=== PATIENT | male | born 1960 | race Caucasian/White ===

== ENCOUNTER → 2016-10-01 | Outpatient (CLI) | payer OTHER ==
[2016-10-01 07:38] LABS: CH 29.5; CHCM 33.7; HCT 46.1 % (39.0-53.0); HDW 2.57; HGB 15.3 gm/dL (13.0-17.5); MCH 29.2 pg (25.0-35.0); MCHC 33.2 g/dL (31.0-37.0); MCV 87.9 fL (80.0-100.0); Mean Platelet Volume 6.8; RBC 5.24 m/uL (4.30-5.90); RDW 12.5 % (11.5-15.5); WBC 7.1 k/uL (3.8-10.6)
[2016-10-01 10:53] LABS: ALT 39 U/L (21-72); AST 23 U/L (17-59); Alkaline Phosphatase 86 U/L (38-126); Anion Gap 10 mmol/L; Blood Urea Nitrogen 17 mg/dL (9-20); Carbon Dioxide 31 mmol/L (22-30); Chloride 103 mmol/L (98-107); Cholesterol 247 mg/dL (<200); Glucose 113 mg/dL (74-99); HDL Cholesterol 52 mg/dL (40-60); Non-African American GFR(MDRD) >60 (>60 ml/min/1.73 sqM); Potassium 4.5 mmol/L (3.5-5.1); Sodium 144 mmol/L (137-145); Total Bilirubin 0.7 mg/dL (0.2-1.3); Total Protein 7.1 g/dL (6.3-8.2); Triglycerides 165 mg/dL (<150)
[2016-10-01 11:22] LABS: Prostate Specific Antigen 3.71 ng/mL (0.00-4.00)
[2016-10-01 16:26] LABS: Hemoglobin A1C 5.4 % (4.2-6.1)
== END ==
LOC: LABWHC1 07:13
PROVIDERS: ATTEND Family Medicine
DX: Z00.01 Encounter for general adult medical examination with abnormal findings (principal); G47.33 Obstructive sleep apnea (adult) (pediatric); Z12.5 Encounter for screening for malignant neoplasm of prostate
CPT/HCPCS: 36415; 80053; 80061; 83036; 84153; 84439; 84443; 85027

== ENCOUNTER 2016-11-27 13:23 | Inpatient (IN) | payer OTHER ==
[2016-11-27] MEDS ORDERED: SODIUM CHLORIDE 0.9% 1,000 ML IV STA ×2 (14:14)
[2016-11-27] MEDS ORDERED: ACETAMINOPHEN TAB 500 MG TAB PO STA (14:14)
[2016-11-27] MEDS ORDERED: LEVOFLOXACIN 500MG-D5W PMX 500 MG in DEXTROSE/WATER 1 100ML.BAG IVPB STA ×2 (14:16→18:05)
--- NOTE | 2016-11-27 14:20 | ED ---
General Adult HPI - General Chief complaint: Fever Stated complaint: blood in urine Time Seen by Provider: 11/27/16 13:56 Source: patient, family, RN notes reviewed Mode of arrival: wheelchair Limitations: no limitations - History of Present Illness Initial comments: Chief complaint and history of present illness a 56-year-old male here with his significant other. The patient was at a local clinic and while there had a fever, tests are done that showed negative strep, negative influenza study. The patient did have trace blood in the urine and he does have right flank pain. This been ongoing for approximately 24 hours. Patient also has acute sharp pain that lasts only a second or 2 to the left yazdanism area. Currently no headache. Vision also complains of occasional cough. - Related Data Home Medications Medication Instructions Recorded Confirmed Acetaminophen Tab [Tylenol Tab] 975 mg PO Q4H PRN 11/27/16 11/27/16 Ibuprofen [Motrin] 600 mg PO Q6HR PRN 11/27/16 11/27/16 Tamsulosin HCl [Flomax] 0.4 mg PO HS 11/27/16 11/27/16 Allergies Allergy/AdvReac Type Severity Reaction Status Date / Time No Known Allergies Allergy Verified 11/27/16 13:49 Review of Systems ROS Statement: Those systems with pertinent positive or pertinent negative responses have been documented in the HPI. Review of systems. No headache or visual acuity changes. His of a sore throat no stiff neck. No chest pain does cough on occasion. Right flank area pain. No complaint of dysuria. No rashes no nausea no vomiting mild discomfort left lower abdomen. No complaint of any neuro deficits. All systems were reviewed. Past medical problems significant for GERD, hyperlipidemia and prostate disorder. The patient is on Flomax. Surgeries right ankle herniorrhaphy repair. Family history father had lung cancer and AAA. Is also Alzheimer's no family and brother at heart disease. Patient denies ALLERGIES. Quit smoking 2 years ago. Denies alcohol use. ROS Other: All systems not noted in ROS Statement are negative. Past Medical History Past Medical History: Hyperlipidemia, Prostate Disorder History of Any Multi-Drug Resistant Organisms: None Reported Past Surgical History: Hernia Repair Past Psychological History: No Psychological Hx Reported Smoking Status: Former smoker Past Alcohol Use History: Occasional Past Drug Use History: None Reported General Exam - General Exam Comments Initial Comments: General: The patient is awake and alert, planes generally not feeling well aches and pains and has a fever today. Had a cough since yesterday. Vital signs temp 102.0 pulse 90 respiratory rate 20 pulse ox 96% room air blood pressure 99/56. Patient reports his blood pressures normally 1:30 systolic. Eye: Pupils are equal, round and reactive to light, extra-ocular movements are intact ; there is normal conjunctiva bilaterally. No signs of icterus. Ears, nose, mouth and throat: There are moist mucous membranes and no oral lesions. Neck: The neck is supple, there is no tenderness , no meningismus no stiff neck. Cardiovascular: There is a regular rate and rhythm. No murmur, rub or gallop is appreciated. Respiratory: Lungs are clear to auscultation, respirations are non-labored, breath sounds are equal. No wheezes, stridor, rales, or rhonchi. Gastrointestinal: Mild tenderness with deep palpation to the left mid abdomen. Patient does state he thinks he may have GERD. He takes ibuprofen and Aleve for his arthritic pains. Advised these could cause ulcers and gastritis. Back: Right flank discomfort. Musculoskeletal: Normal ROM, no tenderness, There is no pedal edema. There is no calf tenderness or swelling. Sensation intact. Pulses equal bilaterally 2+. Neurological: CN II-XII intact, There are no obvious motor or sensory deficits. Coordination appears grossly intact. Speech is normal. No focal or lateralizing findings. Skin: Skin is warm and dry and no rashes or lesions are noted. Limitations: no limitations Course Vital Signs 11/27/16 11/27/16 13:35 15:59 Temperature 102.0 F H 97.7 F Pulse Rate 90 79 Respiratory 20 18 Rate Blood Pressure 99/56 110/61 O2 Sat by Pulse 96 98 Oximetry Medical Decision Making - Medical Decision Making Medical decision making; patient's white count 7.4 hemoglobin 14 hematocrit of 41. Potassium is 3.9 with a BUN of 18 creatinine 0.9 with a GFR greater than 60 , glucose 102. Plasma lactic acid within normal limits. Chest x-ray is done and reviewed by radiologist the findings are there is no pneumothorax or pleural effusion. Linear horizontally oriented opacity seen within the right lower lung overlying the ninth rib. Overlying soft tissues are unremarkable. Cardiac silhouette size within normal limits. Osseous structures are intact. Impression; small linear opacity of the right lower lung peripherally favored to represent atelectasis, early pneumonia is considered much less likely but could be considered given the patient's clinical history. As read by Dr. Still Patient's labs show white count of 7.4 hemoglobin 14 hematocrit 41, potassium 3.9 with a BUN of 18 creatinine 0.91 and GFR greater than 60. Glucose 102. Plasma lactic acid normal. I discussed with the patient possibility of pneumonia versus pyelonephritis. Patient has received Levaquin. I discussed the case with Dr. Mcnulty her on-call for Dr. Peguero. Patient will have Zosyn added to his antibiotics. With further follow-up. - Lab Data Result diagrams: 11/27/16 14:37 11/27/16 14:37 Lab Results 11/27/16 11/27/16 11/27/16 Range/Units 14:37 14:37 14:37 WBC 7.4 (3.8-10.6) k/uL RBC 4.76 (4.30-5.90) m/uL Hgb 14.0 (13.0-17.5) gm/dL Hct 41.9 (39.0-53.0) % MCV 87.9 (80.0-100.0) fL MCH 29.3 (25.0-35.0) pg MCHC 33.4 (31.0-37.0) g/dL RDW 12.6 (11.5-15.5) % Plt Count 233 (150-450) k/uL Neutrophils % 88 % Lymphocytes % 5 % Monocytes % 6 % Eosinophils % 0 % Basophils % 0 % Neutrophils # 6.5 (1.3-7.7) k/uL Lymphocytes # 0.4 L (1.0-4.8) k/uL Monocytes # 0.4 (0-1.0) k/uL Eosinophils # 0.0 (0-0.7) k/uL Basophils # 0.0 (0-0.2) k/uL Sodium 137 (137-145) mmol/L Potassium 3.9 (3.5-5.1) mmol/L Chloride 101 (98-107) mmol/L Carbon Dioxide 26 (22-30) mmol/L Anion Gap 10 mmol/L BUN 18 (9-20) mg/dL Creatinine 0.91 (0.66-1.25) mg/dL Est GFR (MDRD) Af Amer >60 (>60 ml/min/1.73 sqM) Est GFR (MDRD) Non-Af >60 (>60 ml/min/1.73 sqM) Glucose 102 H (74-99) mg/dL Plasma Lactic Acid Foster 0.8 (0.7-2.0) mmol/L Calcium 9.2 (8.4-10.2) mg/dL Total Bilirubin 0.7 (0.2-1.3) mg/dL AST 27 (17-59) U/L ALT 35 (21-72) U/L Alkaline Phosphatase 71 (38-126) U/L Total Protein 6.5 (6.3-8.2) g/dL Albumin 3.9 (3.5-5.0) g/dL Urine Color Urine Appearance (Clear) Urine pH (5.0-8.0) Ur Specific [place] (1.001-1.035) Urine Protein (Negative) Urine Glucose (UA) (Negative) Urine Ketones (Negative) Urine Blood (Negative) Urine Nitrite (Negative) Urine Bilirubin (Negative) Urine Urobilinogen (<2.0) mg/dL Ur Leukocyte Esterase (Negative) 11/27/16 Range/Units 16:35 WBC (3.8-10.6) k/uL RBC (4.30-5.90) m/uL Hgb (13.0-17.5) gm/dL Hct (39.0-53.0) % MCV (80.0-100.0) fL MCH (25.0-35.0) pg MCHC (31.0-37.0) g/dL RDW (11.5-15.5) % Plt Count (150-450) k/uL Neutrophils % % Lymphocytes % % Monocytes % % Eosinophils % % Basophils % % Neutrophils # (1.3-7.7) k/uL Lymphocytes # (1.0-4.8) k/uL Monocytes # (0-1.0) k/uL Eosinophils # (0-0.7) k/uL Basophils # (0-0.2) k/uL Sodium (137-145) mmol/L Potassium (3.5-5.1) mmol/L Chloride (98-107) mmol/L Carbon Dioxide (22-30) mmol/L Anion Gap mmol/L BUN (9-20) mg/dL Creatinine (0.66-1.25) mg/dL Est GFR (MDRD) Af Amer (>60 ml/min/1.73 sqM) Est GFR (MDRD) Non-Af (>60 ml/min/1.73 sqM) Glucose (74-99) mg/dL Plasma Lactic Acid Foster (0.7-2.0) mmol/L Calcium (8.4-10.2) mg/dL Total Bilirubin (0.2-1.3) mg/dL AST (17-59) U/L ALT (21-72) U/L Alkaline Phosphatase (38-126) U/L Total Protein (6.3-8.2) g/dL Albumin (3.5-5.0) g/dL Urine Color Yellow Urine Appearance Clear (Clear) Urine pH 6.0 (5.0-8.0) Ur Specific [place] 1.014 (1.001-1.035) Urine Protein Trace H (Negative) Urine Glucose (UA) Negative (Negative) Urine Ketones 1+ H (Negative) Urine Blood Negative (Negative) Urine Nitrite Negative (Negative) Urine Bilirubin Negative (Negative) Urine Urobilinogen <2.0 (<2.0) mg/dL Ur Leukocyte Esterase Negative (Negative) Disposition Clinical Impression: Pneumonia Disposition: ADMITTED IP TO THIS HOSP Condition: Fair
--- NOTE | 2016-11-27 14:58 | XR ---
EXAMINATION TYPE: XR chest 2V DATE OF EXAM: 11/27/2016 2:50 PM COMPARISON: NONE HISTORY: Cough, congestion, and fever for a few days. TECHNIQUE: Frontal and lateral views of the chest are obtained. FINDINGS: There is no pneumothorax or pleural effusion. Linear and horizontally oriented opacity see n within the right lower lung overlying the ninth rib. Overlying soft tissues are unremarkable. The cardiac silhouette size is within normal limits. The osseous structures are intact. IMPRESSION: Small linear opacity of the right lower lung peripherally favored to represent atelectas is, early pneumonia is considered much less likely but could be considered given the patient's clinic al history.
[2016-11-27 15:06] LABS: Basophils % (A) 0 %; CH 30.5; CHCM 34.8; Eosinophils % (A) 0 %; HCT 41.9 % (39.0-53.0); HDW 2.49; Luc # (Auto) 0.08; Luc % (Auto) 1; Lymphocytes # (A) 0.4 k/uL (1.0-4.8); Lymphocytes % (A) 5 %; MCH 29.3 pg (25.0-35.0); MCHC 33.4 g/dL (31.0-37.0); MCV 87.9 fL (80.0-100.0); Mean Platelet Volume 6.3; Monocytes # (A) 0.4 k/uL (0-1.0); Monocytes % (A) 6 %; Neutrophils # (A) 6.5 k/uL (1.3-7.7); Neutrophils % (A) 88 %; RBC 4.76 m/uL (4.30-5.90); RDW 12.6 % (11.5-15.5); WBC 7.4 k/uL (3.8-10.6); WBC (Perox) 7.75
[2016-11-27 15:10] LABS: ALT 35 U/L (21-72); AST 27 U/L (17-59); Alkaline Phosphatase 71 U/L (38-126); Anion Gap 10 mmol/L; Blood Urea Nitrogen 18 mg/dL (9-20); Calcium 9.2 mg/dL (8.4-10.2); Carbon Dioxide 26 mmol/L (22-30); Chloride 101 mmol/L (98-107); Glucose 102 mg/dL (74-99); Non-African American GFR(MDRD) >60 (>60 ml/min/1.73 sqM); Potassium 3.9 mmol/L (3.5-5.1); Sodium 137 mmol/L (137-145); Total Bilirubin 0.7 mg/dL (0.2-1.3); Total Protein 6.5 g/dL (6.3-8.2)
[2016-11-27 16:52] LABS: Appearance,Urine Clear (Clear); Bilirubin,Urine Negative (Negative); Glucose,Urine (UA) Negative (Negative); Ketones,Urine 1+ (Negative); Leukocyte Esterase,Urine Negative (Negative); Nitrite,Urine Negative (Negative); Protein,Urine Trace (Negative); Specific Gravity,Urine 1.014 (1.001-1.035); UA Billing (MACRO vs. MICRO) CHEM; Urobilinogen,Urine <2.0 mg/dL (<2.0)
[2016-11-27] MEDS ORDERED: PIPERACILLIN-TAZOBACTAM 3.375 GM in DEXTROSE/WATER 1 50ML.BAG IVPB STA (17:58)
[2016-11-27] MEDS ORDERED: NALOXONE 0.4 MG/ML 1 ML VIAL IV PRN (18:03)
[2016-11-27] MEDS: SODIUM CHLORIDE 0.9% 1,000 ML IV SCH (18:34)
[2016-11-27] MEDS: ACETAMINOPHEN TAB 325 MG TAB PO PRN (22:03)
[2016-11-27] MEDS: FAMOTIDINE 20 MG TAB PO SCH (22:04)
[2016-11-28] MEDS: PIPERACILLIN-TAZOBACTAM 3.375 GM in DEXTROSE/WATER 1 50ML.BAG IVPB SCH ×4 (00:24→23:44)
[2016-11-28 03:16] VITALS: BMI 25.0
[2016-11-28] MEDS: SODIUM CHLORIDE 0.9% 1,000 ML IV SCH ×3 (04:24→23:44)
[2016-11-28] MEDS: FAMOTIDINE 20 MG TAB PO SCH ×2 (08:07→21:02)
[2016-11-28 08:51] LABS: Basophils % (A) 0 %; CHCM 33.9; Eosinophils % (A) 0 %; HCT 40.1 % (39.0-53.0); HDW 2.46; HGB 13.3 gm/dL (13.0-17.5); Luc % (Auto) 1; Lymphocytes # (A) 0.5 k/uL (1.0-4.8); Lymphocytes % (A) 6 %; MCH 29.4 pg (25.0-35.0); MCHC 33.1 g/dL (31.0-37.0); Mean Platelet Volume 6.5; Monocytes # (A) 0.4 k/uL (0-1.0); Monocytes % (A) 5 %; Neutrophils # (A) 7.9 k/uL (1.3-7.7); Neutrophils % (A) 88 %; RBC 4.51 m/uL (4.30-5.90); RDW 12.8 % (11.5-15.5); WBC 8.9 k/uL (3.8-10.6); WBC (Perox) 9.47
[2016-11-28 09:23] LABS: Anion Gap 9 mmol/L; Blood Urea Nitrogen 15 mg/dL (9-20); Calcium 8.5 mg/dL (8.4-10.2); Carbon Dioxide 27 mmol/L (22-30); Chloride 98 mmol/L (98-107); Glucose 133 mg/dL (74-99); Non-African American GFR(MDRD) >60 (>60 ml/min/1.73 sqM); Potassium 3.6 mmol/L (3.5-5.1); Sodium 134 mmol/L (137-145)
[2016-11-28] MEDS ORDERED: ACETAMINOPHEN IV (For NPO) 1,000 MG in EMPTY BAG 1 BAG IVPB ONE (11:15)
[2016-11-28] MEDS: HYDROmorphone 1 MG/ML 1 ML SYRINGE IVP PRN (12:10)
--- NOTE | 2016-11-28 13:43 | P.HPIM ---
History of Present Illness H&P Date: 11/28/16 Chief Complaint: Community-acquired pneumonia with SIRS This is a 56-year-old male one of Dr. Peguero with a previous medical history significant for hyperlipidemia, enlarged prostate, ALLERGIC rhinitis, chronic tobacco use and dependence with a pack every day for over 40 years quit about 2 years ago with a COPD, patient presented to the emergency department at [facility] yesterday from [facility] after he was seen over there with the high-grade temperature associated with increased coughing and yellow from production along with sore throat he had flu swab as well as strep swab they were both negative, patient was sent to the emergency department at [facility] for evaluation, he was found to have right lower lobe pneumonia on the chest x-ray, no leukocytosis, his temperature was 103. Blood culture, sputum culture, patient was started on Levaquin 500 mg piggyback every 24 hours as well as Zosyn 3.375 g IV piggyback every 6 hours, Tylenol 1 g IV piggyback every 6 hours as needed, patient was complaining of significant pressure behind his left maxillary sinus with significant headache at that time. He was complaining of postnasal drip as well as there was no stiff neck and there is no meningismus and Kernig sign was negative Review of Systems Constitutional: Reports fatigue, Reports sweats, Denies chills, Denies chronic headaches, Denies chronic pain, Denies lethargy, Denies malaise, Denies weight gain, Denies weight loss Eyes: denies blurred vision, denies bulging eye, denies decreased vision Ears: deny: decreased hearing Ears, nose, mouth and throat: Reports sore throat, Denies dysphagia, Denies neck lump Cardiovascular: Reports dyspnea on exertion, Reports shortness of breath, Denies chest pain, Denies decreased exercise tolerance, Denies high blood pressure, Denies paroxysmal nocturnal dyspnea, Denies phlebitis, Denies rapid heart beat, Denies syncope Respiratory: Reports congestion, Reports cough, Reports cough with sputum, Reports dyspnea, Denies home oxygen, Denies sleep apnea, Denies snoring, Denies wheezing Gastrointestinal: Reports nausea, Denies abdominal pain, Denies bloating, Denies BRBPR, Denies coffee ground emesis, Denies constipation, Denies diarrhea , Denies dyspepsia, Denies excessive gas, Denies heartburn, Denies hematemesis, Denies melena, Denies vomiting Genitourinary: Denies dysuria, Denies genital sores, Denies hematuria, Denies nocturia, Denies polyuria, Denies testicular lump Musculoskeletal: Denies myalgias Musculoskeletal: absent: ankle pain, ankle stiffness, ankle swelling, elbow pain , elbow stiffness, elbow swelling, foot pain, foot stiffness, foot swelling, hand pain, hand stiffness, hand swelling, hip pain, hip stiffness, hip swelling , knee pain, knee stiffness, knee swelling, shoulder pain, shoulder stiffness, shoulder swelling, wrist pain, wrist stiffness, wrist swelling Integumentary: Denies pruritus, Denies rash Neurological: Denies numbness, Denies weakness Psychiatric: Denies anxiety, Denies depression Endocrine: Denies fatigue, Denies weight change Past Medical History Past Medical History: Hyperlipidemia, Osteoarthritis (OA), Prostate Disorder History of Any Multi-Drug Resistant Organisms: None Reported Past Surgical History: Hernia Repair Past Anesthesia/Blood Transfusion Reactions: No Reported Reaction Past Psychological History: No Psychological Hx Reported Smoking Status: Former smoker (Patient used to smoke a pack every day for 4 years quit about 2 years ago.) Past Alcohol Use History: Occasional Past Drug Use History: None Reported - Past Family History Mother Family Medical History: Neurologic Disorder (Mother at age of 75 from Alzheimer dementia.) Father Family Medical History: Coronary Artery Disease (CAD) (Father at age of 82 from CAD.) Brother(s) Family Medical History: Neurologic Disorder (Patient has multiple step brothers one of them with Alzheimer dementia.) Sister(s) Family Medical History: No Reported History (Multiple stepsisters no major medical problems.) Daughter(s) Family Medical History: No Reported History (Patient has 2 daughters no major medical problems) Son(s) Family Medical History: No Reported History (Patient has one son no major medical problems) Medications and Allergies Home Medications Medication Instructions Recorded Confirmed Type Acetaminophen Tab [Tylenol Tab] 975 mg PO Q4H PRN 11/27/16 11/27/16 History Ibuprofen [Motrin] 600 mg PO Q6HR PRN 11/27/16 11/27/16 History Tamsulosin HCl [Flomax] 0.4 mg PO HS 11/27/16 11/27/16 History Allergies Allergy/AdvReac Type Severity Reaction Status Date / Time No Known Allergies Allergy Verified 11/27/16 13:49 Physical Exam Vitals: Vital Signs Temp Pulse Pulse Resp BP BP Pulse Ox 11/28/16 12:13 101.3 F H 11/28/16 07:00 101 F H 94 18 112/74 92 L 11/27/16 23:00 100.9 F H 82 16 105/53 94 L 11/27/16 20:30 100.7 F H 11/27/16 18:38 100.1 F H 80 18 123/70 99 Intake and Output 11/27/16 11/28/16 11/28/16 22:59 06:59 14:59 Intake Total 1000 480 Balance 1000 480 Intake: Amount of Fluid Infused ( 1000 ml) Oral 480 Other: # Voids 1 Weight 74.8 kg - Constitutional General appearance: mild distress - EENT Eyes: anicteric sclerae, EOMI, PERRLA, no ptosis, no scleral icterus, normal appearance ENT: hearing grossly normal, pharyngeal erythema, no thrush, tonsillar exudates , no tonsillar swelling Ears: bilateral: normal - Neck Neck: no lymphadenopathy, normal ROM, no rigidity, no stridor, no thyromegaly Carotids: bilateral: upstroke normal Thyroid: bilateral: normal size - Respiratory Respiratory: right: dullness, rhonchi, bilateral: diminished, negative: wheezing - Cardiovascular Rhythm: regular Heart sounds: normal: S1, S2 Abnormal Heart Sounds: no systolic murmur, no rub, no S3 Gallop, no S4 Gallop, no click - Gastrointestinal General gastrointestinal: normal bowel sounds, soft, no splenomegaly, no tenderness, no umbilical hernia, no ventral hernia - Integumentary Integumentary: normal, normal turgor - Neurologic Neurologic: CNII-XII intact - Musculoskeletal Musculoskeletal: generalized weakness, strength equal bilaterally - Psychiatric Psychiatric: A&O x's 3, appropriate affect, intact judgment & insight Results CBC & Chem 7: 11/28/16 08:21 11/28/16 08:21 Labs: Abnormal Lab Results - Last 24 Hours (Table) 11/28/16 11/28/16 Range/Units 08:21 08:21 Neutrophils # 7.9 H (1.3-7.7) k/uL Lymphocytes # 0.5 L (1.0-4.8) k/uL Sodium 134 L (137-145) mmol/L Glucose 133 H (74-99) mg/dL Thrombosis Risk Factor Assmnt - DVT/VTE Prophylaxis DVT/VTE Prophylaxis: Pharmacologic Prophylaxis ordered, Mechanical Prophylaxis ordered - Choose All That Apply Any of the Below Risk Factors Present?: Yes Each Factor Represents 1 point: Age 41-60 years Other Risk Factors: No Thrombosis Risk Factor Assessment Total Risk Factor Score: 1 Thrombosis Risk Factor Assessment Level: Low Risk Assessment and Plan Plan: Assessment and plan: 1. Community-acquired right lower lobe pneumonia with SIRS. IV fluid resuscitation normal saline with 25 mL an hour, IV anabiotic Levaquin 500 mg IV every 24 hours, Zosyn 3.375 g IV piggyback every 6 hours, sputum culture, blood cultures 2, Tylenol 1 g IV piggyback every 6 hours as needed, Pulmonary consultation patient will need to go for a computed tomography scan of the chest for further evaluation after pneumonia is resolved because of his prior history of tobacco use. He would be given Prevnar before he leaves the hospital. 2. Hyperlipidemia. Low-cholesterol diet. 3. Enlarged prostate. Continue Flomax 0.4 mg orally once every day. 4. ALLERGIC rhinitis. Stable at this time. 5. DVT prophylaxis. Early ambulation, Lovenox 40 mg subcutaneously every 24 hours, bilateral knee-high SAL hose. 6. GI prophylaxis. Continue PPI 7. Patient is full code. 8. Admit to inpatient. Estimate a length of stay 2 midnights.
[2016-11-28] MEDS ORDERED: LEVOFLOXACIN 500MG-D5W PMX 500 MG in DEXTROSE/WATER 1 100ML.BAG IVPB SCH (14:00)
[2016-11-29] MEDS: PIPERACILLIN-TAZOBACTAM 3.375 GM in DEXTROSE/WATER 1 50ML.BAG IVPB SCH ×3 (08:43→23:17)
[2016-11-29] MEDS: FAMOTIDINE 20 MG TAB PO SCH ×2 (08:43→20:15)
[2016-11-29] MEDS: SODIUM CHLORIDE 0.9% 1,000 ML IV SCH ×2 (08:43→20:15)
[2016-11-29] MEDS: ENOXAPARIN 40 MG/0.4 ML SYRINGE SQ SCH (08:43)
[2016-11-29] MEDS: ACETAMINOPHEN TAB 325 MG TAB PO PRN ×2 (08:57→23:19)
[2016-11-29] MEDS: LEVOFLOXACIN 500 MG TAB PO SCH (13:08)
--- NOTE | 2016-11-29 13:31 | P.PN ---
Subjective This is a 56-year-old male one of Dr. Peguero with a previous medical history significant for hyperlipidemia, enlarged prostate, ALLERGIC rhinitis, chronic tobacco use and dependence with a pack every day for over 40 years quit about 2 years ago with a COPD, patient presented to the emergency department at [facility] yesterday from [place] after he was seen over there with the high-grade temperature associated with increased coughing and yellow from production along with sore throat he had flu swab as well as strep swab they were both negative, patient was sent to the emergency department at [facility] for evaluation, he was found to have right lower lobe pneumonia on the chest x-ray, no leukocytosis, his temperature was 103. Blood culture, sputum culture, patient was started on Levaquin 500 mg piggyback every 24 hours as well as Zosyn 3.375 g IV piggyback every 6 hours, Tylenol 1 g IV piggyback every 6 hours as needed, patient was complaining of significant pressure behind his left maxillary sinus with significant headache at that time. He was complaining of postnasal drip as well as there was no stiff neck and there is no meningismus and Kernig sign was negative 11/29: Patient states his breathing is much better today he still has a little sore throat and his headache is better. He did have a temperature max this morning of 101. Sputum culture has been obtained and will be sent to the lab. He is continued on Zosyn and Levaquin. Initial blood cultures are showing no growth at [address] Jacoby blackburn. Objective - Vital Signs Vital signs: Vital Signs Temp 101.0 F H 11/29/16 08:55 Pulse 81 11/29/16 08:00 Resp 18 11/29/16 08:00 BP 107/55 11/29/16 07:00 Pulse Ox 93 L 11/29/16 07:00 Intake & Output 11/28/16 11/29/16 11/29/16 18:59 06:59 18:59 Other: # Voids 2 2 # Bowel Movements 1 1 - Exam General appearance: mild distress - EENT Eyes: anicteric sclerae, EOMI, PERRLA, no ptosis, no scleral icterus, normal appearance ENT: hearing grossly normal, pharyngeal erythema, no thrush, tonsillar exudates , no tonsillar swelling Ears: bilateral: normal - Neck Neck: no lymphadenopathy, normal ROM, no rigidity, no stridor, no thyromegaly Carotids: bilateral: upstroke normal Thyroid: bilateral: normal size - Respiratory Respiratory: right: dullness, rhonchi, bilateral: diminished, negative: wheezing - Cardiovascular Rhythm: regular Heart sounds: normal: S1, S2 Abnormal Heart Sounds: no systolic murmur, no rub, no S3 Gallop, no S4 Gallop, no click - Gastrointestinal General gastrointestinal: normal bowel sounds, soft, no splenomegaly, no tenderness, no umbilical hernia, no ventral hernia - Integumentary Integumentary: normal, normal turgor - Neurologic Neurologic: CNII-XII intact - Musculoskeletal Musculoskeletal: generalized weakness, strength equal bilaterally - Psychiatric Psychiatric: A&O x's 3, appropriate affect, intact judgment & insight - Labs CBC & Chem 7: 11/28/16 08:21 11/28/16 08:21 Labs: Microbiology - Last 24 Hours (Table) 11/28/16 09:20 Stool Culture - Preliminary Stool Assessment and Plan Plan: 1. Community-acquired right lower lobe pneumonia with SIRS. IV fluid resuscitation normal saline with 75 mL an hour, IV anabiotic Levaquin 500 mg IV every 24 hours, Zosyn 3.375 g IV piggyback every 6 hours, sputum culture, blood cultures 2, Tylenol 1 g IV piggyback every 6 hours as needed, Pulmonary consultation patient will need to go for a computed tomography scan of the chest for further evaluation after pneumonia is resolved because of his prior history of tobacco use. He would be given Prevnar before he leaves the hospital. 2. Hyperlipidemia. Low-cholesterol diet. 3. Enlarged prostate. Continue Flomax 0.4 mg orally once every day. 4. ALLERGIC rhinitis. Stable at this time. 5. DVT prophylaxis. Early ambulation, Lovenox 40 mg subcutaneously every 24 hours, bilateral knee-high SAL hose. 6. GI prophylaxis. Continue PPI 7. Patient is full code. Discharge plan: Return home Impression and plan of care have been directed as dictated by the signing physician. Mandi Rose nurse practitioner acting as scribe for signing physician. Time with Patient: Greater than 30
--- NOTE | 2016-11-29 15:50 | P.CNPUL ---
History of Present Illness Consult date: 11/29/16 Requesting physician: Jessica Estrada Reason for consult: dyspnea, abnormal CXR/CT Chief complaint: Weakness, fatigue, shortness of breath History of present illness: This is a very pleasant 56-year-old gentleman who follows with Dr. Whitney as his primary care physician. He has a history of a hyperlipidemia and benign prosthetic hypertrophy. He also has a history of smoking but did quit 2 years ago. He has no COPD/emphysema. On no inhalers in the outpatient setting. He had presented here to the emergency room on 11/27/2016 with complaints of progressive weakness, sore throat cough and congestion. That same day he had been seen at [facility] and a rapid strep and influenza screens were negative. They wanted to perform some blood work that would take several days for results and recommended he be seen in the emergency room instead. His lab results revealed a white count of 7.4. Creatinine 0.9. Lactic was within normal limits. A chest x-ray revealed some linear opacity in the right lower lobe. He was quite febrile with a temperature of 102. He was hemodynamically stable. He was admitted for suspected right lower lobe pneumonia. Consulted for the same. He is seen today in consultation on the regular medical floor. He is awake and alert in no acute distress. He has felt stronger each day. His appetite has been fair. He denies any chills or night sweats. He has had ongoing issues with temperatures. He was 101.0 again this morning. He does have a loose nonproductive cough. He is maintaining good O2 saturations in the mid 90s on room air. Cultures reveal no growth to date. Culture reveals no growth to date. Stools culture is pending. Sputum cultures pending. He has been initiated on Levaquin and Zosyn. Review of Systems Routine point review of system was conducted. All negative other than as mentioned in the HPI. Past Medical History Past Medical History: Hyperlipidemia, Osteoarthritis (OA), Prostate Disorder History of Any Multi-Drug Resistant Organisms: None Reported Past Surgical History: Hernia Repair Past Anesthesia/Blood Transfusion Reactions: No Reported Reaction Past Psychological History: No Psychological Hx Reported Smoking Status: Former smoker (Patient used to smoke a pack every day for 4 years quit about 2 years ago.) Past Alcohol Use History: Occasional Past Drug Use History: None Reported - Past Family History Mother Family Medical History: Neurologic Disorder (Mother at age of 75 from Alzheimer dementia.) Father Family Medical History: Coronary Artery Disease (CAD) (Father at age of 82 from CAD.) Brother(s) Family Medical History: Neurologic Disorder (Patient has multiple step brothers one of them with Alzheimer dementia.) Sister(s) Family Medical History: No Reported History (Multiple stepsisters no major medical problems.) Daughter(s) Family Medical History: No Reported History (Patient has 2 daughters no major medical problems) Son(s) Family Medical History: No Reported History (Patient has one son no major medical problems) Medications and Allergies Home Medications Medication Instructions Recorded Confirmed Type Acetaminophen Tab [Tylenol Tab] 975 mg PO Q4H PRN 11/27/16 11/27/16 History Ibuprofen [Motrin] 600 mg PO Q6HR PRN 11/27/16 11/27/16 History Tamsulosin HCl [Flomax] 0.4 mg PO HS 11/27/16 11/27/16 History Allergies Allergy/AdvReac Type Severity Reaction Status Date / Time No Known Allergies Allergy Verified 11/27/16 13:49 Physical Exam Vitals: Vital Signs Temp Pulse Resp BP Pulse Ox 11/29/16 15:00 99.8 F H 99 18 110/61 97 11/29/16 08:55 101.0 F H 11/29/16 08:00 81 18 11/29/16 07:00 100.6 F H 81 18 107/55 93 L 11/28/16 23:00 99.7 F H 82 16 110/56 95 Intake and Output 11/29/16 11/29/16 11/29/16 06:59 14:59 22:59 Intake Total 130 Balance 130 Intake: IV 130 Piperacillin-Tazobactam 3 50 .375 gm In Dextrose/Water 1 50ml.bag @ 12.5 mls/hr IVPB Q8HR [facility] Rx#: [id number] Sodium Chloride 0.9% 1, 80 000 ml @ 100 mls/hr IV . Q10H [facility] Rx#:[id number] Other: # Voids 2 # Bowel Movements 1 GENERAL EXAM: Alert, active, comfortable in no apparent distress. HEAD: Normocephalic. EYES: Normal reaction of pupils, equal size. NOSE: Clear with pink turbinates. THROAT: No erythema or exudates. NECK: No masses, no JVD. CHEST: No chest wall deformity. LUNGS: Equal air entry with no crackles, wheeze, rhonchi or dullness. CVS: S1 and S2 normal with no audible murmurs, regular rhythm. ABDOMEN: No hepatosplenomegaly, normal bowel sounds, no guarding or rigidity. SPINE: No scoliosis or deformity SKIN: No rashes CENTRAL NERVOUS SYSTEM: No focal deficits, tone is normal in all 4 extremities. Sturman is: There is no significant peripheral edema. No clubbing, no cyanosis. Peripheral pulses are intact. Results - Laboratory Findings CBC and BMP: 11/28/16 08:21 11/28/16 08:21 Abnormal lab findings: Abnormal Labs 11/28/16 11/28/16 08:21 08:21 Neutrophils # 7.9 H Lymphocytes # 0.5 L Sodium 134 L Glucose 133 H - Diagnostic Findings Chest x-ray: image reviewed Assessment and Plan Plan: Impression: #1 Right lower lobe pneumonia, suspect community-acquired. #2 History of chronic tobacco use however quit 2 years ago. #3 Hyperlipidemia. #4 Benign prosthetic hypertrophy. Plan: The patient was seen and evaluated by Dr. Dozier. His chest x-ray and labs were reviewed. The patient does have ongoing fever would benefit from another 24 hours here. We'll continue with Zosyn and Levaquin. He is on Lovenox for DVT prophylaxis and Protonix for GI prophylaxis. We'll wait for further culture results. We'll repeat his chest x-ray in the a.m. we'll continue to follow make further recommendations based on his clinical status. Time with Patient: Greater than 30
[2016-11-30] MEDS: SODIUM CHLORIDE 0.9% 1,000 ML IV SCH (05:56)
[2016-11-30] MEDS: ENOXAPARIN 40 MG/0.4 ML SYRINGE SQ SCH (08:12)
[2016-11-30] MEDS: PIPERACILLIN-TAZOBACTAM 3.375 GM in DEXTROSE/WATER 1 50ML.BAG IVPB SCH ×3 (08:13→23:03)
[2016-11-30] MEDS: FAMOTIDINE 20 MG TAB PO SCH ×2 (08:13→20:10)
[2016-11-30] MEDS: HYDROmorphone 1 MG/ML 1 ML SYRINGE IVP PRN (08:17)
[2016-11-30] MEDS ORDERED: SODIUM CHLORIDE 0.65% NASAL SPRAY 44 ML BTL NASAL PRN (09:45)
[2016-11-30] MEDS ORDERED: LORATADINE 10 MG TAB PO PRN (09:45)
--- NOTE | 2016-11-30 11:58 | XR ---
EXAMINATION TYPE: XR chest 2V DATE OF EXAM: 11/30/2016 10:16 AM COMPARISON: 11/27/2016 INDICATION: Right lower lobe pneumonia TECHNIQUE: 2 view chest. FINDINGS: The heart size is normal. The pulmonary vasculature is normal. Lungs are clear. Previous infiltrate at the right base has resolved IMPRESSION: 1. No acute pulmonary process.
--- NOTE | 2016-11-30 14:24 | P.PN ---
Subjective This is a 56-year-old male one of Dr. Peguero with a previous medical history significant for hyperlipidemia, enlarged prostate, ALLERGIC rhinitis, chronic tobacco use and dependence with a pack every day for over 40 years quit about 2 years ago with a COPD, patient presented to the emergency department at [facility] yesterday from [employer] after he was seen over there with the high-grade temperature associated with increased coughing and yellow from production along with sore throat he had flu swab as well as strep swab they were both negative, patient was sent to the emergency department at [facility] for evaluation, he was found to have right lower lobe pneumonia on the chest x-ray, no leukocytosis, his temperature was 103. Blood culture, sputum culture, patient was started on Levaquin 500 mg piggyback every 24 hours as well as Zosyn 3.375 g IV piggyback every 6 hours, Tylenol 1 g IV piggyback every 6 hours as needed, patient was complaining of significant pressure behind his left maxillary sinus with significant headache at that time. He was complaining of postnasal drip as well as there was no stiff neck and there is no meningismus and Kernig sign was negative 11/29: Patient states his breathing is much better today he still has a little sore throat and his headache is better. He did have a temperature max this morning of 101. Sputum culture has been obtained and will be sent to the lab. He is continued on Zosyn and Levaquin. Initial blood cultures are showing no growth at [address] Dozier added. 11/30: Patient is much improved from yesterday. He continues to run low-grade fevers of 100.3 temperature max in the past 24 hours which is improving. He is complaining of nasal congestion for which saline spray and Claritin added. He is complaining of the sleep issue that he has had for 67 years which will need further workup as an outpatient. He is continued on IV Zosyn and oral Levaquin. IV fluids changed to saline lock. Sputum culture is showing no organisms. Objective - Vital Signs Vital signs: Vital Signs Temp 100.2 F H 11/30/16 07:00 Pulse 76 11/30/16 07:00 Resp 20 11/30/16 07:00 BP 116/55 11/30/16 07:00 Pulse Ox 94 L 11/30/16 07:00 Intake & Output 11/29/16 11/30/16 11/30/16 18:59 06:59 18:59 Intake Total 130 Balance 130 Intake: IV 130 Piperacillin-Tazobactam 3 50 .375 gm In Dextrose/Water 1 50ml.bag @ 12.5 mls/hr IVPB Q8HR [facility] Rx#: [id number] Sodium Chloride 0.9% 1, 80 000 ml @ 100 mls/hr IV . Q10H [facility] Rx#:[id number] Other: # Voids 1 - Exam General appearance: mild distress - EENT Eyes: anicteric sclerae, EOMI, PERRLA, no ptosis, no scleral icterus, normal appearance ENT: hearing grossly normal, pharyngeal erythema, no thrush, tonsillar exudates , no tonsillar swelling Ears: bilateral: normal - Neck Neck: no lymphadenopathy, normal ROM, no rigidity, no stridor, no thyromegaly Carotids: bilateral: upstroke normal Thyroid: bilateral: normal size - Respiratory Respiratory: right: dullness, rhonchi, bilateral: diminished, negative: wheezing - Cardiovascular Rhythm: regular Heart sounds: normal: S1, S2 Abnormal Heart Sounds: no systolic murmur, no rub, no S3 Gallop, no S4 Gallop, no click - Gastrointestinal General gastrointestinal: normal bowel sounds, soft, no splenomegaly, no tenderness, no umbilical hernia, no ventral hernia - Integumentary Integumentary: normal, normal turgor - Neurologic Neurologic: CNII-XII intact - Musculoskeletal Musculoskeletal: generalized weakness, strength equal bilaterally - Psychiatric Psychiatric: A&O x's 3, appropriate affect, intact judgment & insight - Labs CBC & Chem 7: 11/28/16 08:21 11/28/16 08:21 Labs: Microbiology - Last 24 Hours (Table) 11/28/16 09:20 Stool Culture - Preliminary Stool 11/29/16 10:25 Gram Stain - Preliminary Sputum 11/28/16 11:46 Blood Culture - Preliminary Blood No Growth after 24 hours 11/28/16 11:54 Blood Culture - Preliminary Blood No Growth after 24 hours Assessment and Plan Plan: 1. Community-acquired right lower lobe pneumonia with SIRS. IV fluid resuscitation normal saline with 75 mL an hour, Levaquin 500 mg po every 24 hours, Zosyn 3.375 g IV piggyback every 6 hours, Pulmonary consultation. Patient will need to go for a computed tomography scan of the chest for further evaluation after pneumonia is resolved because of his prior history of tobacco use. He would be given Prevnar before he leaves the hospital. 2. Hyperlipidemia. Low-cholesterol diet. 3. Enlarged prostate. Continue Flomax 0.4 mg orally once every day. 4. ALLERGIC rhinitis. Stable at this time. 5. DVT prophylaxis. Early ambulation, Lovenox 40 mg subcutaneously every 24 hours, bilateral knee-high SAL hose. 6. GI prophylaxis. Continue PPI 7. Patient is full code. Discharge plan: Return home Impression and plan of care have been directed as dictated by the signing physician. Mandi Rose nurse practitioner acting as scribe for signing physician. Time with Patient: Greater than 30
[2016-11-30] MEDS: LEVOFLOXACIN 500 MG TAB PO SCH (15:07)
[2016-11-30 16:31] VITALS: RESP 16
[2016-11-30] MEDS: ACETAMINOPHEN TAB 325 MG TAB PO PRN (16:33)
--- NOTE | 2016-11-30 17:56 | P.PN ---
Subjective This is a very pleasant 56-year-old gentleman who follows with Dr. Whitney as his primary care physician. He has a history of a hyperlipidemia and benign prosthetic hypertrophy. He also has a history of smoking but did quit 2 years ago. He has no COPD/emphysema. On no inhalers in the outpatient setting. He had presented here to the emergency room on 11/27/2016 with complaints of progressive weakness, sore throat cough and congestion. That same day he had been seen at [facility] and a rapid strep and influenza screens were negative. They wanted to perform some blood work that would take several days for results and recommended he be seen in the emergency room instead. His lab results revealed a white count of 7.4. Creatinine 0.9. Lactic was within normal limits. A chest x-ray revealed some linear opacity in the right lower lobe. He was quite febrile with a temperature of 102. He was hemodynamically stable. He was admitted for suspected right lower lobe pneumonia. Consulted for the same. He is seen today in consultation on the regular medical floor. He is awake and alert in no acute distress. He has felt stronger each day. His appetite has been fair. He denies any chills or night sweats. He has had ongoing issues with temperatures. He was 101.0 again this morning. He does have a loose nonproductive cough. He is maintaining good O2 saturations in the mid 90s on room air. Cultures reveal no growth to date. Culture reveals no growth to date. Stools culture is pending. Sputum cultures pending. He has been initiated on Levaquin and Zosyn. On 11/30/2016, the patient is still having some low-grade fever. He is having less shortness of breath. He seems to be much more active and reports improvement in his fatigue and overall weakness. Nonacute as per distress. No chest pain. No pleurisy. He is still on Levaquin and Zosyn combination. White cell count remains nonelevated. Follow-up chest x-ray from today shows no acute cardio pulmonary process. Objective - Vital Signs Vital signs: Vital Signs Temp 100.9 F H 11/30/16 15:00 Pulse 85 11/30/16 15:00 Resp 16 11/30/16 15:00 BP 98/53 11/30/16 15:00 Pulse Ox 94 L 11/30/16 15:00 Intake & Output 11/29/16 11/30/16 11/30/16 18:59 06:59 18:59 Intake Total 130 Balance 130 Intake: IV 130 Piperacillin-Tazobactam 3 50 .375 gm In Dextrose/Water 1 50ml.bag @ 12.5 mls/hr IVPB Q8HR [facility] Rx#: [id number] Sodium Chloride 0.9% 1, 80 000 ml @ 100 mls/hr IV . Q10H [facility] Rx#:[id number] Other: # Voids 1 2 - Exam The patient appeared well nourished and normally developed. Vital signs as documented. Head exam is unremarkable. No scleral icterus or corneal arcus noted. Neck is without jugular venous distension, thyromegaly, or carotid bruits. Carotid upstrokes are brisk bilaterally. Lungs are clear to auscultation and percussion. Cardiac exam reveals the PMI to be normally sized and situated. Rhythm is regular. First and second heart sounds normal. No murmurs, rubs or gallops. Abdominal exam reveals normal bowel sounds, no masses , no organomegaly and no aortic enlargement. Extremities are nonedematous and both femoral and pedal pulses are normal. - Labs CBC & Chem 7: 11/28/16 08:21 11/28/16 08:21 Labs: Microbiology - Last 24 Hours (Table) 11/28/16 11:46 Blood Culture - Preliminary Blood No Growth after 48 hours 11/28/16 11:54 Blood Culture - Preliminary Blood No Growth after 48 hours 11/29/16 10:25 Gram Stain - Preliminary Sputum Sputum Culture - Preliminary 11/28/16 09:20 Stool Culture - Preliminary Stool Assessment and Plan Plan: assessment 1 limited right lower lobe pneumonia, still febrile with low-grade fever. Currently on a condition of Zosyn and Levaquin. Blood cultures of been negative and sputum cultures were also negative. 2 COPD 3 BPH 4 hypertension 5 hyperlipidemia Plan Continue current antibiotic coverage. Monitor the blood cultures. White cell count is not elevated.monitor the fever pattern. Pulse ox is 94% on room air.Ifurther recovered over the next 24 hours. We'll continue to follow.
[2016-12-01] MEDS: PIPERACILLIN-TAZOBACTAM 3.375 GM in DEXTROSE/WATER 1 50ML.BAG IVPB SCH ×2 (09:23→15:05)
[2016-12-01] MEDS: ENOXAPARIN 40 MG/0.4 ML SYRINGE SQ SCH (09:23)
[2016-12-01] MEDS: FAMOTIDINE 20 MG TAB PO SCH (09:24)
[2016-12-01] MEDS: LEVOFLOXACIN 500 MG TAB PO SCH (14:34)
[2016-12-01 15:20] VITALS: BP 109/56; PULSE 79
[2016-12-01 16:40] VITALS: TEMP 97.5
--- NOTE | 2016-12-02 14:00 | P.DS ---
Providers Date of admission: 11/27/16 18:03 Expected date of discharge: 12/01/16 Attending physician: Jessica Estrada Consults: 11/28/16 11:44 Consult Physician Routine Consulting Provider: Janice Dozier Consult Reason/Comments: pneumonia Do you want consulting provider notified?: Yes Primary care physician: Nahun [facility] Course: This is a 56-year-old male one of Dr. Peguero with a previous medical history significant for hyperlipidemia, enlarged prostate, ALLERGIC rhinitis, chronic tobacco use and dependence with a pack every day for over 40 years quit about 2 years ago with a COPD, patient presented to the emergency department at [facility] yesterday from [employer] after he was seen over there with the high-grade temperature associated with increased coughing and yellow from production along with sore throat he had flu swab as well as strep swab they were both negative, patient was sent to the emergency department at [facility] for evaluation, he was found to have right lower lobe pneumonia on the chest x-ray, no leukocytosis, his temperature was 103. Blood culture, sputum culture, patient was started on Levaquin 500 mg piggyback every 24 hours as well as Zosyn 3.375 g IV piggyback every 6 hours, Tylenol 1 g IV piggyback every 6 hours as needed, patient was complaining of significant pressure behind his left maxillary sinus with significant headache at that time. He was complaining of postnasal drip as well as there was no stiff neck and there is no meningismus and Kernig sign was negative 11/29: Patient states his breathing is much better today he still has a little sore throat and his headache is better. He did have a temperature max this morning of 101. Sputum culture has been obtained and will be sent to the lab. He is continued on Zosyn and Levaquin. Initial blood cultures are showing no growth at [address] Dozier added. 11/30: Patient is much improved from yesterday. He continues to run low-grade fevers of 100.3 temperature max in the past 24 hours which is improving. He is complaining of nasal congestion for which saline spray and Claritin added. He is complaining of the sleep issue that he has had for 67 years which will need further workup as an outpatient. He is continued on IV Zosyn and oral Levaquin. IV fluids changed to saline lock. Sputum culture is showing no organisms. 12/01: Patient's respiratory status is much improved. Patient will be monitored through the afternoon today for fever and if no fever is noted, patient will be discharged home today in stable condition. Discharge diagnoses: 1. Possible gram-negative right lower lobe pneumonia with SIRS. 2. Hyperlipidemia. 3. Enlarged prostate. 4. ALLERGIC rhinitis. Discharge plan: Return home Impression and plan of care have been directed as dictated by the signing physician. Mandi Rose nurse practitioner acting as scribe for signing physician. Cc: Dr. Nahun Peguero Patient Condition at Discharge: Good Plan - Discharge Summary New Discharge Prescriptions: Levofloxacin [Levaquin] 500 mg PO DAILY@1400 #10 tab Discharge Medication List Acetaminophen Tab [Tylenol] 975 mg PO Q4H PRN 11/27/16 [History] Ibuprofen [Motrin] 600 mg PO Q6HR PRN 11/27/16 [History] Tamsulosin HCl [Flomax] 0.4 mg PO HS 11/27/16 [History] Levofloxacin [Levaquin] 500 mg PO DAILY@1400 #10 tab 12/01/16 [Rx] Loratadine [Claritin] 10 mg PO DAILY PRN #0 tab 12/01/16 [Rx] Sodium Chloride 0.65% Nasal [Deep Sea (Saline)] 2 spray NASAL QID PRN #0 spray 12/01/16 [Rx] Follow up Appointment(s)/Referral(s): Nahun Peguero DO [Primary Care Provider] - 12/08/16 (Office will call you with appointment time. ) Janice Dozier MD [STAFF PHYSICIAN] - 12/08/16 1:00 pm Patient Instructions/Handouts: Pneumonia (DC) Activity/Diet/Wound Care/Special Instructions: Regular diet. Discharge Disposition: HOME SELF-CARE
== END 2016-12-01 16:53 | disposition home or self-care (01) | DRG 190 ==
LOC: EC 13:23 → 4MS4W 18:03
PROVIDERS: ADMIT Internal Medicine; ATTEND Internal Medicine
DX: J44.0 Chronic obstructive pulmonary disease with (acute) lower respiratory infection (principal); J15.6 Pneumonia due to other Gram-negative bacteria; E78.5 Hyperlipidemia, unspecified; J30.9 Allergic rhinitis, unspecified; R51 Headache; I10 Essential (primary) hypertension; N40.0 Benign prostatic hyperplasia without lower urinary tract symptoms; M19.90 Unspecified osteoarthritis, unspecified site; R53.1 Weakness; R09.82 Postnasal drip; R09.81 Nasal congestion; R10.9 Unspecified abdominal pain; Z82.0 Family history of epilepsy and other diseases of the nervous system; Z87.891 Personal history of nicotine dependence; Z82.49 Family history of ischemic heart disease and other diseases of the circulatory system; Z80.1 Family history of malignant neoplasm of trachea, bronchus and lung; Z79.1 Long term (current) use of non-steroidal anti-inflammatories (NSAID); Z79.899 Other long term (current) drug therapy
CPT/HCPCS: 36415; 71020; 80048; 80053; 81003; 83605; 85025; 87040; 87045; 87046; 87070; 87086; 87205; 87324; 96361; 96365; 99284

== ENCOUNTER 2017-01-15 20:48 | Emergency (ER) | payer OTHER ==
[~2017-01-15 20:48] MED LIST: PROPARACAINE 0.5% OPHTH DROPS 15 ML BTL ONE
[2017-01-15 20:59] VITALS: BP 121/75; PULSE 87; RESP 16; TEMP 98.4
[2017-01-15] MEDS ORDERED: PROPARACAINE 0.5% OPHTH DROPS 15 ML BTL ONE (21:04)
[2017-01-15] MEDS ORDERED: PROPARACAINE 0.5% OPHTH DROPS 15 ML BTL LEFT EYE STA (21:15)
[2017-01-15] MEDS ORDERED: TOBRAMYCIN 0.3% OPHTH OINT 3.5 GM TUBE LEFT EYE STA (21:21)
--- NOTE | 2017-01-15 21:22 | ED ---
General Adult HPI - General Chief complaint: ENT Stated complaint: FOB Eye Time Seen by Provider: 01/15/17 21:02 Source: patient, RN notes reviewed Mode of arrival: ambulatory Limitations: no limitations - History of Present Illness Initial comments: Chief complaint history of present illness is a 48-year-old male here with a complaint of foreign body left eye for one day. Patient's last tetanus shot was within 5 years. - Related Data Home Medications Medication Instructions Recorded Confirmed Acetaminophen Tab [Tylenol] 975 mg PO Q4H PRN 11/27/16 11/27/16 Ibuprofen [Motrin] 600 mg PO Q6HR PRN 11/27/16 11/27/16 Tamsulosin HCl [Flomax] 0.4 mg PO HS 11/27/16 11/27/16 Previous Rx's Medication Instructions Recorded Levofloxacin [Levaquin] 500 mg PO DAILY@1400 #10 tab 12/01/16 Loratadine [Claritin] 10 mg PO DAILY PRN #0 tab 12/01/16 Sodium Chloride 0.65% Nasal [Deep 2 spray NASAL QID PRN #0 spray 12/01/16 Sea (Saline)] Allergies Allergy/AdvReac Type Severity Reaction Status Date / Time No Known Allergies Allergy Verified 01/15/17 20:58 Review of Systems ROS Statement: Those systems with pertinent positive or pertinent negative responses have been documented in the HPI. Review of systems no complaint of headache is of left eye discomfort. He's been rubbing the eye. Mildly reddened. Patient points to the upper lateral eyelid as area of discomfort and would be where he suspects the foreign body to be. No other complaints. Past medical problems hyperlipidemia, osteoarthritis , prostate disorder. Surgeries hernia repair. No known ALLERGIES. ROS Other: All systems not noted in ROS Statement are negative. Past Medical History Past Medical History: Hyperlipidemia, Osteoarthritis (OA), Prostate Disorder History of Any Multi-Drug Resistant Organisms: None Reported Past Surgical History: Hernia Repair Past Anesthesia/Blood Transfusion Reactions: No Reported Reaction Past Psychological History: No Psychological Hx Reported Smoking Status: Former smoker Past Alcohol Use History: Occasional Past Drug Use History: None Reported - Past Family History Mother Family Medical History: Neurologic Disorder (Mother at age of 75 from Alzheimer dementia.) Father Family Medical History: Coronary Artery Disease (CAD) (Father at age of 82 from CAD.) Brother(s) Family Medical History: Neurologic Disorder (Patient has multiple step brothers one of them with Alzheimer dementia.) Sister(s) Family Medical History: No Reported History (Multiple stepsisters no major medical problems.) Daughter(s) Family Medical History: No Reported History (Patient has 2 daughters no major medical problems) Son(s) Family Medical History: No Reported History (Patient has one son no major medical problems) General Exam - General Exam Comments Initial Comments: Pertinent physical exam Patient's here for possible foreign body left eye. Visual acuity was done while he has glasses on. Both eyes 20/20, left eye 2020 with one mistake. The patient had proparacaine in the eye at the time. The eye the upper lip lower lids were both lifted and examined rinsed well with normal saline then stained with fluorescein. No foreign bodies noted on upper or lower lid. Ophthalmoscope was used to examine the cornea and no foreign body is noted on the cornea. Black lamp demonstrated small irritation at 3 o'clock position more on the sclera on the cornea. No foreign body noted in the upper or lower lid. It may have come out with irrigation or prior to coming to emergency room from tears. Movements are otherwise normal. No other complaints of the rest of the body. Rest of physical exam not needed. Limitations: no limitations Course Vital Signs 01/15/17 20:55 Temperature 98.4 F Pulse Rate 87 Respiratory 16 Rate Blood Pressure 121/75 O2 Sat by Pulse 95 Oximetry Medical Decision Making - Medical Decision Making Asians eye was examined floor seen and ophthalmoscope. Small irritation is noted. The patient will have Tobrex ophthalmic ointment put in that eye is to do that every 4 hours for the next 36 hours if not 100% normal at that time he is to follow-up with the composition floor layer on-call. Disposition Clinical Impression: Disorder of sclera Disposition: HOME SELF-CARE Condition: Fair Additional Instructions: Wear sunglasses when outside. Put a small ribbon of Tobrex ophthalmic ointment in the left eye every 4-6 hours for comfort. If not 100% healed and normal in 36 hours follow-up with on-call composition floor layer. Referrals: Nahun Peguero DO [Primary Care Provider] - 1-2 days Time of Disposition: 21:22
== END 2017-01-15 21:35 | disposition home or self-care (01) ==
LOC: EC 20:48
DX: H15.89 Other disorders of sclera (principal); N42.9 Disorder of prostate, unspecified; Z87.891 Personal history of nicotine dependence; Z79.899 Other long term (current) drug therapy
CPT/HCPCS: 99283

== ENCOUNTER → 2017-11-11 | Outpatient (CLI) | payer OTHER ==
[2017-11-11 08:43] LABS: HCT 47.2 % (39.0-53.0); HGB 15.5 gm/dL (13.0-17.5); MCH 29.1 pg (25.0-35.0); MCHC 32.8 g/dL (31.0-37.0); MCV 88.9 fL (80.0-100.0); Mean Platelet Volume 6.9; Platelet Count 317 k/uL (150-450); RBC 5.31 m/uL (4.30-5.90); WBC 7.8 k/uL (3.8-10.6)
[2017-11-11 08:53] LABS: Amorphous Sediment,Urine Occasional /hpf; Appearance,Urine Cloudy (Clear); Bilirubin,Urine Negative (Negative); Blood,Urine Negative (Negative); Color,Urine Yellow; Glucose,Urine (UA) Negative (Negative); Ketones,Urine Negative (Negative); Leukocyte Esterase,Urine Negative (Negative); Mucus,Urine Rare /hpf; Nitrite,Urine Negative (Negative); Protein,Urine Trace (Negative); Specific Gravity,Urine 1.018 (1.001-1.035); Urobilinogen,Urine <2.0 mg/dL (<2.0)
[2017-11-11 08:56] LABS: Prothrombin Time 10.2 sec (9.0-12.0)
[2017-11-11 09:51] LABS: ALT 36 U/L (21-72); AST 22 U/L (17-59); Albumin 4.4 g/dL (3.5-5.0); Alkaline Phosphatase 84 U/L (38-126); Anion Gap 11 mmol/L; Blood Urea Nitrogen 18 mg/dL (9-20); Carbon Dioxide 30 mmol/L (22-30); Chloride 103 mmol/L (98-107); Cholesterol 226 mg/dL (<200); Glucose 103 mg/dL (74-99); HDL Cholesterol 56 mg/dL (40-60); LDL Cholesterol,Calculated 143 mg/dL (0-99); Potassium 5.2 mmol/L (3.5-5.1); Sodium 144 mmol/L (137-145); Total Bilirubin 0.5 mg/dL (0.2-1.3); Triglycerides 134 mg/dL (<150)
[2017-11-11 10:06] LABS: T4, Free (Free Thyroxine) 0.96 ng/dL (0.78-2.19)
[2017-11-11 10:20] LABS: Prostate Specific Antigen 6.03 ng/mL (0.00-4.00)
[2017-11-11 18:19] LABS: Hemoglobin A1C 5.4 % (4.0-6.0)
[2017-11-11 18:22] LABS: Hepatitis A Antibody IgM Non-Reactive (Non-Reactive); Hepatitis B Core IgM Non-Reactive (Non-Reactive)
== END | disposition home or self-care (01) ==
LOC: LABWHC1 08:05
PROVIDERS: ATTEND Family Medicine
DX: Z00.00 Encounter for general adult medical examination without abnormal findings (principal); E78.5 Hyperlipidemia, unspecified
CPT/HCPCS: 36415; 80053; 80061; 80074; 81001; 83036; 84153; 84439; 84443; 85027; 85610

== ENCOUNTER → 2018-05-02 | Outpatient (CLI) | payer OTHER ==
--- NOTE | 2018-05-02 11:09 | XR ---
EXAMINATION TYPE: XR chest 2V DATE OF EXAM: 05/02/2018 COMPARISON: 11/30/2016 HISTORY: Shortness of breath TECHNIQUE: Frontal and lateral views of the chest are obtained. FINDINGS: Scattered senescent parenchymal changes noted. Hyperinflation compatible with COPD. No evidence for infiltrate. No evidence for atelectasis. Heart size is stable. Mediastinal structures are stable and grossly unremarkable. No evidence for hilar prominence. Degenerative changes dorsal spine. IMPRESSION: 1. No evidence for acute pulmonary disease.
--- NOTE | 2018-05-02 13:16 | CT ---
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 FINDINGS: LUNG BASES-: No visible nodule. No infiltrate. LIVER/GB: Calcified cholelithiasis. No space occupying hepatic lesion. Biliary tree is of normal c aliber. PANCREAS: No inflammation. No distinct mass. SPLEEN: No splenic enlargement. No lesion seen. ADRENALS: No nodule. Mild adrenal hyperplasia left adrenal gland. 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 No hydronephrosis. No nephr olithiasis. No distinct renal mass. Mild urinary bladder wall thickening without evidence for mass. BOWEL: Normal appendix. Normal bowel caliber. No inflammation. GENITAL ORGANS: Prostate gland enlargement with glandular calcification. LYMPH NODES: No greater than 1cm abdominal or pelvic lymph nodes are appreciated. AORTA: No significant abnormality. OSSEOUS STRUCTURES: No significant abnormality is seen. OTHER: No significant additional abnormality is seen. IMPRESSION: 1. No evidence for metastatic disease. 2.Mild urinary bladder wall thickening without evidence for mass.
--- NOTE | 2018-05-02 14:46 | NM ---
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 Images acq uired 3 hours post injection. FINDINGS: There is degenerative uptake about the shoulders, mid thoracic spine and hips. Degenerative uptake is seen about the wrists as well. No evidence for intense uptake to suggest metastatic disease or fract ure. IMPRESSION: No scintigraphic evidence to suggest metastatic disease.
== END | disposition home or self-care (01) ==
LOC: RADNMMAIN 10:20
PROVIDERS: ATTEND Urology
DX: C67.1 Malignant neoplasm of dome of bladder (principal)
CPT/HCPCS: 71046; 74177; 78306; A9503; Q9967

== ENCOUNTER → 2018-06-13 | Outpatient (CLI) | payer OTHER ==
[2018-06-13 08:54] LABS: Basophils % (A) 0 %; Eosinophils # (A) 0.1 k/uL (0-0.7); Eosinophils % (A) 1 %; HCT 48.8 % (39.0-53.0); Lymphocytes # (A) 1.5 k/uL (1.0-4.8); Lymphocytes % (A) 23 %; MCH 29.6 pg (25.0-35.0); MCHC 32.8 g/dL (31.0-37.0); MCV 90.2 fL (80.0-100.0); Mean Platelet Volume 6.2; Monocytes # (A) 0.4 k/uL (0-1.0); Monocytes % (A) 6 %; Neutrophils # (A) 4.4 k/uL (1.3-7.7); Neutrophils % (A) 68 %; Platelet Count 313 k/uL (150-450); RBC 5.41 m/uL (4.30-5.90); RDW 12.8 % (11.5-15.5); WBC 6.5 k/uL (3.8-10.6)
[2018-06-13 09:22] LABS: Anion Gap 6 mmol/L; Blood Urea Nitrogen 16 mg/dL (9-20); Calcium 9.8 mg/dL (8.4-10.2); Carbon Dioxide 29 mmol/L (22-30); Chloride 103 mmol/L (98-107); Glucose 104 mg/dL (74-99); Potassium 4.9 mmol/L (3.5-5.1); Sodium 138 mmol/L (137-145)
== END | disposition home or self-care (01) ==
LOC: LABPAT 07:34
PROVIDERS: ATTEND Urology
DX: Z01.812 Encounter for preprocedural laboratory examination (principal); C61 Malignant neoplasm of prostate; R53.83 Other fatigue
CPT/HCPCS: 36415; 80048; 85025; 93005

== ENCOUNTER → 2018-07-07 | Outpatient (CLI) | payer OTHER | END | disposition home or self-care (01) | LOC: LABWHC1 08:57 | PROVIDERS: ATTEND Urology | DX: C61 Malignant neoplasm of prostate (principal) | CPT/HCPCS: 36415; 84153 ==

== ENCOUNTER → 2018-10-08 | Outpatient (CLI) | payer OTHER | END | disposition home or self-care (01) | LOC: LABWHC1 15:47 | PROVIDERS: ATTEND Urology | DX: C61 Malignant neoplasm of prostate (principal) | CPT/HCPCS: 36415; 84153; 84403 ==

== ENCOUNTER → 2018-12-22 | Outpatient (CLI) | payer OTHER ==
[2018-12-22 08:56] LABS: Appearance,Urine Clear (Clear); Bilirubin,Urine Negative (Negative); Blood,Urine Negative (Negative); Color,Urine Yellow; Glucose,Urine (UA) Negative (Negative); HCT 49.2 % (39.0-53.0); HGB 15.5 gm/dL (13.0-17.5); Ketones,Urine Negative (Negative); Leukocyte Esterase,Urine Negative (Negative); MCH 28.4 pg (25.0-35.0); MCHC 31.6 g/dL (31.0-37.0); MCV 89.8 fL (80.0-100.0); Mean Platelet Volume 6.3; Nitrite,Urine Negative (Negative); Platelet Count 345 k/uL (150-450); Protein,Urine Trace (Negative); RBC 5.47 m/uL (4.30-5.90); RDW 12.7 % (11.5-15.5); Specific Gravity,Urine 1.028 (1.001-1.035); WBC 7.5 k/uL (3.8-10.6)
[2018-12-22 17:37] LABS: Albumin 4.3 g/dL (3.80-4.90); Albumin/Globulin Ratio 2.26 (1.60-3.17); Anion Gap 4.6 mmol/L (4.00-12.00); Calcium 9.4 mg/dL (8.7-10.3); Carbon Dioxide 28.4 mmol/L (21.6-31.8); Globulin 1.9 g/dL (1.6-3.3); Potassium 4.6 mmol/L (3.5-5.5); Total Bilirubin 0.5 mg/dL (0.3-1.2); Total Protein 6.2 g/dL (6.2-8.2)
[2018-12-22 20:29] LABS: Hemoglobin A1C 5.7 % (4.0-6.0)
== END | disposition home or self-care (01) ==
LOC: LABWHC1 08:10
PROVIDERS: ATTEND Family Medicine
DX: Z00.00 Encounter for general adult medical examination without abnormal findings (principal); C61 Malignant neoplasm of prostate; E78.5 Hyperlipidemia, unspecified; R73.9 Hyperglycemia, unspecified
CPT/HCPCS: 36415; 80053; 80061; 81003; 83036; 84439; 84443; 85027

== ENCOUNTER → 2019-07-20 | Outpatient (CLI) | payer OTHER | END | disposition home or self-care (01) | LOC: LABWHC1 08:03 | PROVIDERS: ATTEND Urology | DX: C61 Malignant neoplasm of prostate (principal) | CPT/HCPCS: 36415; 84153 ==

== ENCOUNTER 2019-09-29 16:17 | Emergency (ER) | payer OTHER ==
[2019-09-29 16:21] VITALS: BP 120/72; PULSE 71; TEMP 98.8
[2019-09-29 16:35] VITALS: RESP 16
--- NOTE | 2019-09-29 16:59 | XR ---
EXAMINATION TYPE: XR chest 2V DATE OF EXAM: 09/29/2019 COMPARISON: 05/02/2018 HISTORY: Cough TECHNIQUE: FINDINGS: There is no heart failure nor confluent pneumonic infiltrate. Heart size is normal. Costoph renic angles are clear. Bony thorax is intact. IMPRESSION: No active cardiopulmonary disease. Normal heart. No change.
--- NOTE | 2019-09-29 17:04 | ED ---
URI HPI - General Chief Complaint: Upper Respiratory Infection Stated Complaint: body aches Time Seen by Provider: 09/29/19 16:23 Source: patient Mode of arrival: ambulatory Limitations: no limitations - History of Present Illness Initial Comments: Patient is a 59-year-old male presenting to emergency Department with complaints of a cough, body aches for the past 3 days. Patient states he has not had a fever, no vomiting, no diarrhea. He states he just feels like he has less energy. He denies chest pain, shortness of breath. He states today he has not been doing much but laying on the couch. States he has had pneumonia in the past and this is starting to feel similar. He denies history of asthma or COPD. He states he does smoke occasionally. He has no other complaints at this time. Upon arrival to the ER his vital signs are stable. - Related Data Home Medications Medication Instructions Recorded Confirmed Tamsulosin HCl [Flomax] 0.4 mg PO HS 11/27/16 06/15/18 Previous Rx's Medication Instructions Recorded Loratadine [Claritin] 10 mg PO DAILY PRN #0 tab 12/01/16 Sodium Chloride 0.65% Nasal [Deep 2 spray NASAL QID PRN #0 spray 12/01/16 Sea (Saline)] Ciprofloxacin HCl [Cipro] 250 mg PO Q12HR #6 tablet 06/15/18 Hydrocodone/Acetaminophen [[place] 1 - 2 each PO Q4HR PRN #6 tab 06/15/18 5-325] Albuterol Inhaler [Ventolin Hfa 1 - 2 puff INHALATION RT-Q6H PRN 09/29/19 Inhaler] #1 inhaler methylPREDNISolone [Medrol Dose 4 mg PO DIRECTED #1 pack 09/29/19 Pack] Allergies Allergy/AdvReac Type Severity Reaction Status Date / Time No Known Allergies Allergy Verified 06/15/18 23:41 Review of Systems ROS Statement: Those systems with pertinent positive or pertinent negative responses have been documented in the HPI. ROS Other: All systems not noted in ROS Statement are negative. Past Medical History Past Medical History: Cancer, COPD, Hyperlipidemia, Osteoarthritis (OA), Pneumonia, Prostate Disorder Additional Past Medical History / Comment(s): prostate cancer, seasonal allergies History of Any Multi-Drug Resistant Organisms: None Reported Past Surgical History: Hernia Repair Additional Past Surgical History / Comment(s): rt testicle removed Past Anesthesia/Blood Transfusion Reactions: No Reported Reaction Past Psychological History: Depression Smoking Status: Current every day smoker Past Alcohol Use History: Occasional Past Drug Use History: Marijuana - Past Family History Mother Family Medical History: Neurologic Disorder Father Family Medical History: Cancer, Coronary Artery Disease (CAD) Additional Family Medical History / Comment(s): aortic aneurysm Brother(s) Family Medical History: Cancer, Memory Impairment, Neurologic Disorder Additional Family Medical History / Comment(s): pancreatic cancer Sister(s) Family Medical History: Pulmonary Embolus Daughter(s) Family Medical History: No Reported History Son(s) Family Medical History: No Reported History General Exam - General Exam Comments Initial Comments: GENERAL: Well-appearing, well-nourished and in no acute distress. HEAD: Atraumatic, normocephalic. EYES: Pupils equal round and reactive to light, extraocular movements intact, sclera anicteric, conjunctiva are normal. ENT: TMs normal, nares patent, oropharynx clear without exudates. Moist mucous membranes. NECK: Normal range of motion, supple without lymphadenopathy or JVD. LUNGS: Mild wheezing noticed on exam. No rales or rhonchi. HEART: Regular rate and rhythm without murmurs, rubs or gallops. ABDOMEN: Soft, nontender, normoactive bowel sounds. No guarding, no rebound. No masses appreciated. : Deferred EXTREMITIES: Normal range of motion, no pitting or edema. No clubbing or cyanosis. NEUROLOGICAL: Normal speech, normal gait. PSYCH: Normal mood, normal affect. SKIN: Warm, Dry, normal turgor, no rashes or lesions noted. Limitations: no limitations Course Vital Signs 09/29/19 09/29/19 16:18 16:33 Temperature 98.8 F Pulse Rate 71 Respiratory 18 16 Rate Blood Pressure 120/72 O2 Sat by Pulse 95 Oximetry Medical Decision Making - Medical Decision Making Patient is 59-year-old male presenting with a cough and increased fatigue for the past 3 days. Exam reveals mild wheezes, rest of exam is normal. Chest x- ray shows no acute abnormalities. Influenza test is negative. I discussed the patient's most likely bronchitis. Patient will be given a prescription for an inhaler as well as steroids. He is in agreement with this plan of care. He is stable for discharge. Return parameters were discussed with the patient he verbalizes understanding. Case discussed with Dr. Harris. - Lab Data Lab Results 09/29/19 Range/Units 16:25 Influenza Type A RNA Not Detected (Not Detectd) Influenza Type B (PCR) Not Detected (Not Detectd) Disposition Clinical Impression: Bronchitis Disposition: HOME SELF-CARE Condition: Stable Instructions (If sedation given, give patient instructions): Acute Bronchitis (ED) Additional Instructions: Please return to the Emergency Department if symptoms worsen or any other concerns. Take steroids as prescribed and use inhaler as needed. Follow-up with PCP as symptoms persist. Prescriptions: methylPREDNISolone [Medrol Dose Pack] 4 mg PO DIRECTED #1 pack Albuterol Inhaler [Ventolin Hfa Inhaler] 1 - 2 puff INHALATION RT-Q6H PRN #1 inhaler PRN Reason: Cough Is patient prescribed a controlled substance at d/c from ED?: No Referrals: Nahun Peguero DO [Primary Care Provider] - 1-2 days
== END 2019-09-29 17:29 | disposition home or self-care (01) ==
LOC: EC 16:17
DX: J40 Bronchitis, not specified as acute or chronic (principal); F17.200 Nicotine dependence, unspecified, uncomplicated; Z79.899 Other long term (current) drug therapy; Z85.46 Personal history of malignant neoplasm of prostate; Z87.01 Personal history of pneumonia (recurrent); Z90.79 Acquired absence of other genital organ(s)
CPT/HCPCS: 71046; 87502; 99283

== ENCOUNTER → 2023-03-24 | Outpatient (CLI) | payer OTHER ==
--- NOTE | 2023-03-24 15:09 | XR ---
EXAMINATION TYPE: XR Hip Complete RT DATE OF EXAM: 03/24/2023 CLINICAL HISTORY: pain TECHNIQUE: AP and frogleg views of the right hip are obtained. COMPARISON: None. FINDINGS: There is no acute fracture/dislocation evident. The joint space appears within normal li mits. The overlying soft tissue appears unremarkable. IMPRESSION: 1. There is no acute fracture or dislocation. ICD 10 NO FRACTURE, INITIAL EVALUATION
== END | disposition home or self-care (01) ==
LOC: LABWHC1 14:45
PROVIDERS: ATTEND Family Medicine
DX: M25.551 Pain in right hip (principal)
CPT/HCPCS: 73502

== ENCOUNTER 2023-04-09 09:50 | Emergency (ER) | payer OTHER ==
[2023-04-09 10:04] VITALS: RESP 18
--- NOTE | 2023-04-09 11:59 | ED ---
URI HPI - General Chief Complaint: ENT Stated Complaint: Cough, sore throat Time Seen by Provider: 04/09/23 10:14 Source: patient Mode of arrival: ambulatory Limitations: no limitations - History of Present Illness Initial Comments: Patient is 62-year-old male presenting to the emergency room with complaints of cough and mild sore throat which began late in the evening yesterday. He does not report a increase in symptoms causing him to present to the emergency room today however he is concerned because in the past he has developed pneumonia. He denies any productive cough, difficulty in swallowing, shortness of breath, chest pain, abdominal pain, nausea, vomiting, fevers or chills. He denies any known viral exposure. His past medical history as listed below was reviewed. - Related Data Home Medications Medication Instructions Recorded Confirmed Tamsulosin HCl [Flomax] 0.4 mg PO HS 11/27/16 06/15/18 Previous Rx's Medication Instructions Recorded Loratadine [Claritin] 10 mg PO DAILY PRN #0 tab 12/01/16 Sodium Chloride 0.65% Nasal [Deep 2 spray NASAL QID PRN #0 spray 12/01/16 Sea (Saline)] Ciprofloxacin HCl [Cipro] 250 mg PO Q12HR #6 tablet 06/15/18 Hydrocodone/Acetaminophen [[place] 1 - 2 each PO Q4HR PRN #6 tab 06/15/18 5-325] Albuterol Inhaler [Ventolin Hfa 1 - 2 puff INHALATION RT-Q6H PRN 09/29/19 Inhaler] #1 inhaler methylPREDNISolone [Medrol Dose 4 mg PO DIRECTED #1 pack 09/29/19 Pack] Allergies Allergy/AdvReac Type Severity Reaction Status Date / Time No Known Allergies Allergy Verified 04/09/23 10:04 Review of Systems ROS Statement: Those systems with pertinent positive or pertinent negative responses have been documented in the HPI. ROS Other: All systems not noted in ROS Statement are negative. Past Medical History Past Medical History: Cancer, COPD, Hyperlipidemia, Osteoarthritis (OA), Pneumonia, Prostate Disorder Additional Past Medical History / Comment(s): prostate cancer, seasonal allergies History of Any Multi-Drug Resistant Organisms: None Reported Past Surgical History: Hernia Repair Additional Past Surgical History / Comment(s): rt testicle removed Past Anesthesia/Blood Transfusion Reactions: No Reported Reaction Past Psychological History: Depression Smoking Status: Current every day smoker Past Alcohol Use History: Occasional Past Drug Use History: Marijuana - Past Family History Mother Family Medical History: Neurologic Disorder Father Family Medical History: Cancer, Coronary Artery Disease (CAD) Additional Family Medical History / Comment(s): aortic aneurysm Brother(s) Family Medical History: Cancer, Memory Impairment, Neurologic Disorder Additional Family Medical History / Comment(s): pancreatic cancer Sister(s) Family Medical History: Pulmonary Embolus Daughter(s) Family Medical History: No Reported History Son(s) Family Medical History: No Reported History General Exam Limitations: no limitations General appearance: alert, in no apparent distress Head exam: Present: atraumatic, normocephalic, normal inspection Eye exam: Present: normal appearance, PERRL, EOMI. Absent: scleral icterus, conjunctival injection, periorbital swelling ENT exam: Present: normal exam, mucous membranes moist Expanded Mouth exam: Present: normal external inspection Teeth exam: Present: normal inspection Throat exam: negative: tonsillar erythema, tonsillomegaly, tonsillar exudate Neck exam: Present: normal inspection. Absent: tenderness, lymphadenopathy Respiratory exam: Present: normal lung sounds bilaterally. Absent: respiratory distress, wheezes, rales, rhonchi, stridor Cardiovascular Exam: Present: regular rate, normal rhythm, normal heart sounds. Absent: systolic murmur, diastolic murmur, rubs, gallop, clicks GI/Abdominal exam: Present: soft, normal bowel sounds. Absent: distended, tenderness, guarding, rebound, rigid Extremities exam: Present: normal inspection. Absent: pedal edema, joint swelling Back exam: Present: normal inspection Neurological exam: Present: alert, oriented X3, CN II-XII intact Psychiatric exam: Present: normal affect, normal mood Skin exam: Present: warm, dry, intact, normal color. Absent: rash Course Vital Signs 04/09/23 04/09/23 10:02 12:04 Temperature 98.2 F 97.9 F Pulse Rate 77 72 Respiratory 18 18 Rate Blood Pressure 124/77 132/76 O2 Sat by Pulse 97 99 Oximetry Medical Decision Making - Medical Decision Making Was pt. sent in by a medical professional or institution (, PA, TELEGRAPH SERVICE CLERK, urgent care, hospital, or fdc...) When possible be specific @ -No Did you speak to anyone other than the patient for history (EMS, parent, family, police, friend...)? What history was obtained from this source @ -No Did you review nursing and triage notes (agree or disagree)? Why? @ -I reviewed and agree with nursing and triage notes Were old charts reviewed (outside hosp., previous admission, EMS record, old EKG, old radiological studies, urgent care reports/EKG's, fdc records)? Report findings @ -No old charts were reviewed Differential Diagnosis (chest pain, altered mental status, abdominal pain women, abdominal pain men, vaginal bleeding, weakness, fever, dyspnea, syncope, headache, dizziness, GI bleed, back pain, seizure, CVA, palpatations, mental health, musculoskeletal)? @ -Differential Upper respiratory symptoms: Pneumonia, viral URI, bronchitis, otitis, sinusitis, streptococcal pharyngitis, mononucleosis, peritonsillar Abscess, retropharyngeal Abscess, epiglottitis, this is not meant to be an all-inclusive list. EKG interpreted by me (3pts min.). @ -None done X-rays interpreted by me (1pt min.). @ -None done CT interpreted by me (1pt min.). @ -None done U/S interpreted by me (1pt. min.). @ -None done What testing was considered but not performed or refused? (CT, X-rays, U/S, labs)? Why? @ -None What meds were considered but not given or refused? Why? @ -None Did you discuss the management of the patient with other professionals (professionals i.e. , PA, TELEGRAPH SERVICE CLERK, lab, RT, psych nurse, elementary school social worker, build master, teacher, articulation officer, case filler)? Give summary @ -No Was smoking cessation discussed for >3mins.? @ -No Was critical care preformed (if so, how long)? @ -No Were there social determinants of health that impacted care today? How? (Homelessness, low income, unemployed, alcoholism, drug addiction, transportation, low edu. Level, literacy, decrease access to med. care, prison, rehab)? @ -No Was there de-escalation of care discussed even if they declined (Discuss DNR or withdrawal of care, Hospice)? DNR status @ -No What co-morbidities impacted this encounter? (DM, HTN, Smoking, COPD, CAD, Cancer, CVA, ARF, Chemo, Hep., AIDS, mental health diagnosis, sleep apnea, morbid obesity)? @ -None Was patient admitted / discharged? Hospital course, mention meds given and route, prescriptions, significant lab abnormalities, going to OR and other pertinent info. @ -62-year-old male presenting to the emergency room with complaints of cough and mild sore throat less than 24 hours without any associated symptoms. No indication for serum laboratory studies, diagnostic imaging or medication administration in the setting of normal exam without any abnormalities on vital signs. Will obtain viral swabbing for COVID, RSV and influenza. Due to sore throat will also obtain strep swabbing however low probability in the setting of lack of tonsillar edema. Viral swabbing negative for COVID, influenza and RSV. Strep swabbing negative. Findings discussed with patient. Discussed course and treatment of viral upper respiratory infections advising no indication for any medication administration advised symptomatic management with [id number] cough suppressant, throat lozenges, plenty of fluids and Tylenol or Motrin as needed for pain. Advised follow-up in 7-10 days if symptoms persist. Questions and concerns answered. Return parameters emergency room discussed. Will discharge home in stable condition with symptomatic management of acute viral pharyngitis advising follow-up with primary care provider. Undiagnosed new problem with uncertain prognosis? @ -No Drug Therapy requiring intensive monitoring for toxicity (Heparin, Nitro, Insulin, Cardizem)? @ -No Were any procedures done? @ -No Diagnosis/symptom? @ -Viral pharyngitis Acute, or Chronic, or Acute on Chronic? @ -Acute Uncomplicated (without systemic symptoms) or Complicated (systemic symptoms)? @ -Uncomplicated Side effects of treatment? @ -No Exacerbation, Progression, or Severe Exacerbation? @ -No Poses a threat to life or bodily function? How? (Chest pain, [place], [place], pneumonia, PE, COPD, DKA, ARF, appy, cholecystitis, CVA, Diverticulitis, Homicidal, Suicidal, threat to staff... and all critical care pts) @ -No Case discussed with Dr. Mcfarland - Lab Data Lab Results 04/09/23 04/09/23 Range/Units 10:19 10:19 Influenza Type A (PCR) Not Detected (Not Detectd) Influenza Type B (PCR) Not Detected (Not Detectd) RSV (PCR) Not Detected (Not Detectd) SARS-CoV-2 (PCR) Not Detected (Not Detectd) Group A Strep (PCR) NOT DETECTED (Not Detectd) Disposition Clinical Impression: Acute viral pharyngitis Disposition: HOME SELF-CARE Condition: Stable Instructions (If sedation given, give patient instructions): Pharyngitis (ED) Additional Instructions: Utilize [id number] Tylenol or Motrin as needed for pain. Please follow-up with your primary care provider. Stay well hydrated. Please return to the Emergency Department if symptoms worsen or any other concerns. Is patient prescribed a controlled substance at d/c from ED?: No Referrals: Nahun Peguero DO [Primary Care Provider] - 1-2 days Time of Disposition: 11:59
[2023-04-09 12:06] VITALS: BP 132/76; PULSE 72; TEMP 97.9
== END 2023-04-09 12:06 | disposition home or self-care (01) ==
LOC: EC 09:50
DX: J02.8 Acute pharyngitis due to other specified organisms (principal); J44.9 Chronic obstructive pulmonary disease, unspecified; F17.200 Nicotine dependence, unspecified, uncomplicated; F12.90 Cannabis use, unspecified, uncomplicated; Z86.59 Personal history of other mental and behavioral disorders; Z20.822 Contact with and (suspected) exposure to COVID-19
CPT/HCPCS: 87636; 87651; 99283

== ENCOUNTER → 2024-01-27 | Outpatient (CLI) | payer MEDICARE ==
--- NOTE | 2024-01-27 14:56 | XR ---
EXAMINATION TYPE: XR cervical spine comp DATE OF EXAM: 01/27/2024 CLINICAL HISTORY: pain COMPARISON: 12/24/2013 TECHNIQUE: Frontal, lateral, oblique, swimmers, and open mouth view of the cervical spine are obtaine d. FINDINGS: The cervical spine is visualized in its entirety from C1 thru the top of T1 level. It is s atisfactory in alignment without evidence of acute fracture or dislocation. The pre-vertebral soft t issue appears within normal limits. [id number] multilevel degenerative disc space narrowing ext ending from C4 through C6 7. The C1-C2 articulation is unremarkable on the open mouth view. The obli que images are within normal limits. IMPRESSION: No acute fracture or dislocation is seen in the cervical spine.ICD 10 NO FRACTURE, INITI AL EVALUATION
== END | disposition home or self-care (01) ==
LOC: RADXRMAIN 14:11
PROVIDERS: ATTEND Family Medicine
DX: M54.12 Radiculopathy, cervical region (principal)
CPT/HCPCS: 72050

== ENCOUNTER 2025-02-22 08:14 | Emergency (ER) | payer MEDICARE ==
--- NOTE | 2025-02-22 08:46 | ED ---
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 He denies paresthesias or loss of range of motion. He is unaware when his last tetanus vaccination was. - Related Data Previous Rx's Medication Instructions Recorded Amoxic-Pot Clav 875-125Mg 1 tab PO Q12HR 10 Days #20 tab 05/23/23 [Augmentin 875-125] Cephalexin [Keflex] 500 mg PO Q6HR #40 cap 02/22/25 Allergies Allergy/AdvReac Type Severity Reaction Status Date / Time No Known Allergies Allergy Verified 05/23/23 17:58 Review of Systems ROS Statement: Those systems with pertinent positive or pertinent negative responses have been documented in the HPI. ROS Other: All systems not noted in ROS Statement are negative. Past Medical History Past Medical History: Cancer, COPD, Hyperlipidemia, Osteoarthritis (OA), Pneumonia, Prostate Disorder Additional Past Medical History / Comment(s): prostate cancer, seasonal allergies History of Any Multi-Drug Resistant Organisms: None Reported Past Surgical History: Hernia Repair Additional Past Surgical History / Comment(s): rt testicle removed Past Anesthesia/Blood Transfusion Reactions: No Reported Reaction Past Psychological History: Depression Smoking Status: Current every day smoker Past Alcohol Use History: Occasional Past Drug Use History: Marijuana - Past Family History Mother Family Medical History: Neurologic Disorder Father Family Medical History: Cancer, Coronary Artery Disease (CAD) Additional Family Medical History / Comment(s): aortic aneurysm Brother(s) Family Medical History: Cancer, Memory Impairment, Neurologic Disorder Additional Family Medical History / Comment(s): pancreatic cancer Sister(s) Family Medical History: Pulmonary Embolus Daughter(s) Family Medical History: No Reported History Son(s) Family Medical History: No Reported History General Exam Limitations: no limitations Respiratory exam: Present: normal lung sounds bilaterally. Absent: respiratory distress, wheezes, rales, rhonchi, stridor Cardiovascular Exam: Present: regular rate, normal rhythm, normal heart sounds. Absent: systolic murmur, diastolic murmur, rubs, gallop, clicks GI/Abdominal exam: Present: soft, normal bowel sounds. Absent: distended, t enderness, guarding, rebound, rigid Left Hand Wrist exam: Present: tenderness, laceration (2 cm lac to mid dorsum of hand, no bleeding) Neuro motor exam: Present: wrist extension intact, thumb opposition intact, thumb IP flexion intact, thumb adduction intact Vascular: Present: normal capillary refill, radial pulse (2+). Absent: vascular compromise Course Vital Signs 02/22/25 02/22/25 08:16 09:19 Temperature 97.4 F L 98.0 F Pulse Rate 64 70 Respiratory 16 18 Rate Blood Pressure 124/61 128/66 O2 Sat by Pulse 98 99 Oximetry Procedures - Laceration Laceration #1 Consent Obtained: verbal consent Indication: laceration Site: hand Size (cm): 2 Description: linear Depth: simple, single layer Sedation/Analgesia: none Type of Sutures: nylon Size of Sutures: 4-0 Number of Sutures: 3 Technique: simple, interrupted Patient Tolerated Procedure: well, no complications Medical Decision Making - Medical Decision Making Was pt. sent in by a medical professional or institution ([facility], [facility], urgent care, hospital, or group home...) When possible be specific @ -No Did you speak to anyone other than the patient for history (EMS, parent, family, police, friend...)? What history was obtained from this source @ -No Did you review nursing and triage notes (agree or disagree)? Why? @ -I reviewed and agree with nursing and triage notes Were old charts reviewed (outside hosp., previous admission, EMS record, old EKG, old radiological studies, urgent care reports/EKG's, group home records)? Report findings @ -No old charts were reviewed Differential Diagnosis (chest pain, altered mental status, abdominal pain women, abdominal pain men, vaginal bleeding, weakness, fever, dyspnea, syncope, headache, dizziness, GI bleed, back pain, seizure, CVA, palpatations, mental health, musculoskeletal)? @ -laceration, skin avulsion, tendon injury, this list is not all inclusive EKG interpreted by me (3pts min.). @ -none X-rays interpreted by me (1pt min.). @ -None done CT interpreted by me (1pt min.). @ -None done U/S interpreted by me (1pt. min.). @ -None done What testing was considered but not performed or refused? (CT, X-rays, U/S, labs)? Why? @ -None What meds were considered but not given or refused? Why? @ -None Did you discuss the management of the patient with other professionals (professionals i.e. DrStephon, PA, [facility] [employer], lab, RT, psych nurse, social worker school, line therapist, teacher, quality officer, case reviewer)? Give summary @ -No Was smoking cessation discussed for >3mins.? @ -No Was critical care preformed (if so, how long)? @ -No Were there social determinants of health that impacted care today? How? (Homelessness, low income, unemployed, alcoholism, drug addiction, transportation, low edu. Level, literacy, decrease access to med. care, usp, rehab)? @ -No Was there de-escalation of care discussed even if they declined (Discuss DNR or withdrawal of care, Hospice)? DNR status @ -No What co-morbidities impacted this encounter? (DM, HTN, Smoking, COPD, CAD, Cancer, CVA, ARF, Chemo, Hep., AIDS, mental health diagnosis, sleep apnea, morbid obesity)? @ -None Was patient admitted / discharged? Hospital course, mention meds given and route, prescriptions, significant lab abnormalities, going to OR and other pertinent info. @ -Discharge. 64-year-old male presenting with laceration to the dorsum of the hand measuring approximately 2 cm. Patient is neurovascularly intact. He was offered pain medication and was declined. Tetanus vaccine is updated. 3 simple interrupted sutures were placed with 4-0 nylon. Patient is placed on antibiotics and return parameters discussed. Return to the ER or to PCP in 7 to 10 days for suture removal. Case discussed with Dr. Freeman. Undiagnosed new problem with uncertain prognosis? @ -No Drug Therapy requiring intensive monitoring for toxicity (Heparin, Nitro, Insulin, Cardizem)? @ -No Were any procedures done? @ -Suture repair Diagnosis/symptom? @ -Laceration Acute, or Chronic, or Acute on Chronic? @ -Acute Uncomplicated (without systemic symptoms) or Complicated (systemic symptoms)? @ -Uncomplicated Side effects of treatment? @ -No Exacerbation, Progression, or Severe Exacerbation? @ -No Poses a threat to life or bodily function? How? (Chest pain, [place], [place], pneumonia, PE, COPD, DKA, ARF, appy, cholecystitis, CVA, Diverticulitis, Homicidal, Suicidal, threat to staff... and all critical care pts) @ -No Disposition Clinical Impression: Laceration Disposition: HOME SELF-CARE Condition: Good Instructions (If sedation given, give patient instructions): Care For Your Stitches (ED) Additional Instructions: Please return to the Emergency Department if symptoms worsen or any other concerns. Complete full course of antibiotics as prescribed. If you begin to experience severe swelling, tenderness, purulent drainage from the laceration site please return back to the emergency department. Return to the ER or to your PCP in 7 to 10 days for suture removal. Prescriptions: Cephalexin [Keflex] 500 mg PO Q6HR #40 cap Is patient prescribed a controlled substance at d/c from ED?: No Referrals: Mt Stephens DO [Primary Care Provider] - 1-2 days Time of Disposition: 09:24
[2025-02-22] MEDS: DIPH,PERTUS(ACELL)TETVAC-LF 0.5 ML VIAL IM ONE (08:49)
[2025-02-22 09:20] VITALS: BP 128/66; PULSE 70; RESP 18; TEMP 98
== END 2025-02-22 09:19 | disposition home or self-care (01) ==
LOC: EC 08:14
DX: S61.412A Laceration without foreign body of left hand, initial encounter (principal); F17.200 Nicotine dependence, unspecified, uncomplicated; Z23 Encounter for immunization; W29.8XXA Contact with other powered hand tools and household machinery, initial encounter
CPT/HCPCS: 12001; 90471; 90715; 99282